=== PATIENT | male | born 1960 | race Caucasian/White ===

== ENCOUNTER 2019-12-16 00:25 | Day surgery (SDC) | payer OTHER, SELFPAY ==
[2019-12-12 15:21] VITALS: BMI 32.0
[2019-12-16 09:52] VITALS: BP 168/81; PULSE 56; RESP 18; TEMP 36.1; O2SAT 100
[2019-12-16] MEDS: LACTATED RINGERS 1,000 ML 150 ML IV CONT (10:00)
--- NOTE | 2019-12-16 10:11 | PM.HPGS ---
History of Present Illness History of Present Illness Consent: Risks, benefits, and alternatives have been discussed and questions answered. Patient agrees to proceed with procedure. Chief complaint: neoplasm screening, family hx colon ca Narrative: Baldemar Ritter is a 59 year old W male referred for screening colonoscopy secondary to family history of colon cancer brother diagnosed at age 51. Patient is asymptomatic. Last colonoscopy was 5 years ago no polyps were seen. PMFSH Past Medical History Medical History (Updated 12/16/19 @ 10:12 by Florian Smith MD) Dyslipidemia Surgical History Surgical History (Updated 12/16/19 @ 10:13 by Florian Smith MD) H/O umbilical hernia repair H/O varicose vein stripping History of Bailey fundoplication S/P left inguinal herniorrhaphy Family History Family History Mother Family history of multiple sclerosis Social History Social History Smoking status: Never smoker Second hand tobacco smoke exposure: No Alcohol intake: current Meds Home Medications and Allergies Home Medications Medication Instructions Recorded Confirmed Type pravastatin 80 mg tablet 40 mg PO DAILY #45 tablet 11/11/19 12/12/19 Rx [id number]-[id number]-FA-vit K 1 tablet PO DAILY 12/12/19 12/12/19 History [Adults Multivitamin] Allergies Allergy/AdvReac Type Severity Reaction Status Date / Time cephalexin Allergy Unknown Rash Verified 12/16/19 09:52 Cephalosporins Allergy Unknown Rash Verified 12/16/19 09:52 Vital Signs Vital Signs - 24 hr 12/16/19 09:52 Temperature 36.1 C L Pulse Rate 56 L Respiratory Rate 18 Blood Pressure 168/81 H Pulse Oximetry 100 Exam Const: Orientation/consciousness: patient oriented x3 Resp: Auscultation: clear to auscultation bilaterally Cardio: Rate: regular rate Rhythm: regular rhythm Heart sounds: no murmurs GI: GI Palp: Yes Soft to palpation, No Tenderness to palpation present (GI), Yes No hepatosplenomegaly present and No Palpable mass present Auscultation: normal bowel sounds Neuro: General: patient oriented x3 and no focal motor deficits Extrem: General: no pedal edema Assessment and Plan Additional Plan screening colonoscopy in high risk patient
--- NOTE | 2019-12-16 10:24 | WPDANESEPPF ---
Anes - Initial Pre Proc Eval Procedure: Operation Date: 12/16/19 11:00 Proposed Procedures p Screening Colonoscopy - Florian Smith MD Date/Time: 12/16/19 10:24 Surgeon: Florian Smith MD Pre Op Diagnosis: neoplasm screening, family hx colon ca Patient Data Age: 59 Gender: M Height: 6 ft 1 in Weight: 109.4 kg Last Vital Signs Temp 36.1 C L 12/16/19 09:52 Pulse 56 L 12/16/19 09:52 Resp 18 12/16/19 09:52 BP 168/81 H 12/16/19 09:52 Pulse Ox 100 12/16/19 09:52 Allergies Allergy/AdvReac Type Severity Reaction Status Date / Time cephalexin Allergy Unknown Rash Verified 12/16/19 09:52 Cephalosporins Allergy Unknown Rash Verified 12/16/19 09:52 Home Medications Medication Instructions Recorded Confirmed Type pravastatin 80 mg tablet 40 mg PO DAILY #45 tablet 11/11/19 12/12/19 Rx Adults Multivitamin 1 tablet PO DAILY 12/12/19 12/12/19 History Patient hx anesthesia problems: none Family hx anesthesia problems: none PMFSH Past Medical History Medical History Dyslipidemia Surgical History Surgical History H/O umbilical hernia repair H/O varicose vein stripping History of Bailey fundoplication S/P left inguinal herniorrhaphy Family History Family History Mother Family history of multiple sclerosis Social History Social History Smoking status: Never smoker Second hand tobacco smoke exposure: No Alcohol intake: current Anes - Eval Final PreProcedure Day of Procedure 12/16/19 10:24 Patient weight: obese Heart: regular rate and rhythm Lungs: clear to auscultation Airway: Mallampati scale class II Neurological: alert and oriented Last oral intake: >/= 8 hours ASA classification: II Emergent: no Anesthesia type and monitoring: general GIVS and standard monitoring Informed Consent: The patient's anesthetic plan and its attendant risks and benefits were discussed with the patient/family/POA. Questions were solicited and answers provided to the satisfaction of the patient/family/POA.
[2019-12-16] MEDS: SIMETHICONE ORAL SUSPENSION 20 MG/0.3 ML 30 ML BOTTLE 0.6 ML IRRIGATION (11:11)
[2019-12-16 11:30] VITALS: BP 109/52; PULSE 62; RESP 20; O2SAT 96
[2019-12-16 11:40] VITALS: BP 104/72; PULSE 61; RESP 15; O2SAT 99
[2019-12-16 11:50] VITALS: BP 121/74; PULSE 65; RESP 15; O2SAT 98
== END 2019-12-16 12:00 | disposition home or self-care (01) ==
PROVIDERS: PCP Internal Medicine; Visit Provider Internal Medicine Gastroenterology
PROC: 0DJD8ZZ Inspection of Lower Intestinal Tract, Via Natural or Artificial Opening Endoscopic (ICD-10-PCS; CPT 45378; principal; 2019-12-16 11:00)
DX: Z12.11 Encounter for screening for malignant neoplasm of colon (principal); D12.3 Benign neoplasm of transverse colon; K64.4 Residual hemorrhoidal skin tags; Z80.0 Family history of malignant neoplasm of digestive organs; E78.5 Hyperlipidemia, unspecified
CPT/HCPCS: 45385; 45380; 88305; J2001; J2704; J7120

== ENCOUNTER 2023-07-18 09:18 | Outpatient (CLI) | payer OTHER, SELFPAY ==
--- NOTE | 2023-07-18 11:30 | NEURO_ITS ---
Impression: # 63 year old non-diabetic complains of numbness of lower extremities. 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 # Needle/EMG exam abnormal with neurogenic changes. # Clinical correlation recommended. Nerve Conduction Studies Anti Sensory Summary Table Stim Site NR Peak (ms) P-T Amp (?V) Site1 Site2 Delta-P (ms) Dist (cm) Cong (m/s) Left Sup Fibular Anti Sensory (Ant Lat Mall) NO RESPONSE 14 cm NR 14 cm Ant Lat Mall 16.0 Right Sup Fibular Anti Sensory (Ant Lat Mall) NO RESPONSE 14 cm NR 14 cm Ant Lat Mall 16.0 Left Sural Anti Sensory (Lat Mall) NO RESPONSE Calf NR Calf Lat Mall 16.0 Right Sural Anti Sensory (Lat Mall) NO RESPONSE Calf NR Calf Lat Mall 16.0 Motor Summary Table Stim Site NR Onset (ms) O-P Amp (mV) Site1 Site2 Delta-0 (ms) Dist (cm) Cong (m/s) Left Peroneal Motor (Vastus Med) Ankle 4.1 1.8 Popit Ankle 13.3 44.0 33 Popit 17.4 1.0 Right Peroneal Motor (Vastus Med) Ankle 4.1 0.8 Popit Ankle 11.6 42.0 36 Popit 15.7 0.4 Left Tibial Motor (Abd Zhou Brev) Ankle 4.7 1.2 Knee Ankle 13.6 45.0 33 Knee 18.3 0.9 Right Tibial Motor (Abd Zhou Brev) Ankle 4.6 0.2 Knee Ankle 12.4 45.0 36 Knee 17.0 0.1 F Wave Studies NR F-Lat (ms) L-R F-Lat (ms) Left Peroneal (Mrkrs) (EDB) 72.28 0.50 Right Peroneal (Mrkrs) (EDB) 72.78 0.50 Left Tibial (Mrkrs) (Abd Hallucis) 71.90 0.26 Right Tibial (Mrkrs) (Abd Hallucis) 72.16 0.26 EMG Side Muscle Nerve Root Ins Act Fibs Amp Dur Recrt Comment Right AntTibialis Dp Br Fibular L4-5 Nml Nml Nml Nml Nml Right Gastroc Tibial S1-2 Nml Nml Nml Nml Nml Right Fibularis Long Sup Br Fibular L5-S1 Nml Nml Nml >12ms Reduced Right Flex Dig Long Tibial L5-S2 Nml Nml Nml >12ms Reduced Right Ext Dig Brev Dp Br Fibular L5, S1 Nml Nml Nml >12ms Reduced Left AntTibialis Dp Br Fibular L4-5 Nml Nml Nml Nml Nml Left Gastroc Tibial S1-2 Nml Nml Nml Nml Nml Left Fibularis Long Sup Br Fibular L5-S1 Nml Nml Nml >12ms Reduced Left Flex Dig Long Tibial L5-S2 Nml Nml Nml >12ms Reduced Left Ext Dig Brev Dp Br Fibular L5, S1 Nml Nml Nml >12ms Reduced MTDD
== END 2023-07-18 09:19 | disposition home or self-care (01) ==
LOC: ANHNEURO 09:19
PROVIDERS: PCP Internal Medicine; Visit Provider Internal Medicine
DX: M79.605 Pain in left leg (principal); G62.89 Other specified polyneuropathies
CPT/HCPCS: 95886; 95910

== ENCOUNTER 2023-10-05 02:20 | Day surgery (SDC) | payer OTHER, SELFPAY ==
[2023-09-19 08:52] VITALS: BMI 29.1
--- NOTE | 2023-10-03 10:26 | SUR.PREOP ---
Patient called regarding upcoming procedure. Reviewed preop instructions, appointment times, and procedure prep.
[2023-10-05 06:56] VITALS: BP 164/80; PULSE 55; RESP 18; TEMP 36.1; O2SAT 97
[2023-10-05] MEDS: LACTATED RINGERS 1,000 ML 150 ML IV CONT (07:08)
--- NOTE | 2023-10-05 07:50 | PM.HPGS ---
History of Present Illness History of Present Illness Consent: Risks, benefits, and alternatives have been discussed and questions answered. Patient agrees to proceed with procedure. Chief complaint: family hx colon ca, hx of colon polyps Narrative: Baldemar Ritter is a 63 year old male referred for colonoscopy. he has a family history of colon cancer and polyps, In his brother. His brother was diagnosed with colon cancer at age 50.. Review of Systems Review of Systems: All systems reviewed & are unremarkable except as noted in HPI and below PMFSH Past Medical History Medical History Dyslipidemia Surgical History Surgical History H/O umbilical hernia repair H/O varicose vein stripping History of Bailey fundoplication S/P left inguinal herniorrhaphy Family History Family History Mother Family history of multiple sclerosis Social History Social History Smoking status: Never smoker Second hand tobacco smoke exposure: No Alcohol intake: current Lack of Transportation: No Lack of Food: Never True Current Housing: I Have Housing Concerned About Future Housing: No Difficulty Paying Gas/Electric Bills: No Difficulty Paying for Meds: No Currently Unemployed: No Education: Master's Degree or Higher Difficulty w/ Childcare or Family Care: No Spiritual care concerns: No Meds Home Medications and Allergies Home Medications Medication Instructions Recorded Confirmed Type multivit with minerals-iron 18 1 tablet PO DAILY 12/12/19 09/19/23 History mg-folic ac 400 mcg-vit K 25 mcg tablet (Adults Multivitamin) cholecalciferol (vitamin D3) 25 25 mcg PO DAILY 11/16/21 09/19/23 History mcg (1,000 unit) capsule ascorbic acid (vitamin C) 500 mg 500 mg PO DAILY 05/23/22 09/19/23 History capsule pravastatin 80 mg tablet 40 mg PO DAILY #45 tabs 04/25/23 09/19/23 Rx zinc sulfate 50 mg zinc (220 mg) 50 mg PO DAILY 05/29/23 09/19/23 History capsule latanoprost 0.005 % eye drops 1 drp EACH EYE DAILY #2.5 mL 05/31/23 09/19/23 Rx mometasone 50 mcg/actuation nasal 2 spray intranasal DAILY #17 grams 10/04/23 10/05/23 Rx spray Allergies Allergy/AdvReac Type Severity Reaction Status Date / Time cephalexin Allergy Unknown Rash Verified 10/05/23 06:55 Cephalosporins Allergy Unknown Rash Verified 10/05/23 06:55 Vital Signs Vital Signs - 24 hr 10/05/23 06:56 Temperature 36.1 C L Pulse Rate 55 L Respiratory Rate 18 Blood Pressure 164/80 H Pulse Oximetry 97 Oxygen Delivery Room Air Exam Const: General: alert Orientation/consciousness: patient oriented x3 Resp: Auscultation: clear to auscultation bilaterally Cardio: Rhythm: regular rhythm GI: GI Palp: Yes Soft to palpation and No Tenderness to palpation present (GI) Neuro: General: patient oriented x3 Assessment and Plan Assessment and plan (1) Family hx of colon cancer: Code(s): Z80.0 - Family history of malignant neoplasm of digestive organs Status: Acute Assessment and Plan: Colonoscopy with possible biopsy or polypectomy or cautery or injection of substances.
--- NOTE | 2023-10-05 07:52 | WPDANESEPPF ---
Anes - Initial Pre Proc Eval Procedure: Operation Date: 10/05/23 08:00 Proposed Procedures p Colonoscopy - Hernandez Billingsley MD Date/Time: 10/05/23 07:52 Surgeon: Hernandez Billingsley MD Pre Op Diagnosis: family hx colon ca, hx of colon polyps Patient Data Age: 63 Gender: M Height: 1.88 m Weight: 100.2 kg Last Vital Signs Temp 96.9 F L 10/05/23 06:56 Pulse 55 L 10/05/23 06:56 Resp 18 10/05/23 06:56 BP 164/80 H 10/05/23 06:56 Pulse Ox 97 10/05/23 06:56 O2 Del Method Room Air 10/05/23 06:56 Allergies Allergy/AdvReac Type Severity Reaction Status Date / Time cephalexin Allergy Unknown Rash Verified 10/05/23 06:55 Cephalosporins Allergy Unknown Rash Verified 10/05/23 06:55 Home Medications Medication Instructions Recorded Confirmed Type multivit with minerals-iron 18 1 tablet PO DAILY 12/12/19 09/19/23 History mg-folic ac 400 mcg-vit K 25 mcg tablet (Adults Multivitamin) cholecalciferol (vitamin D3) 25 25 mcg PO DAILY 11/16/21 09/19/23 History mcg (1,000 unit) capsule ascorbic acid (vitamin C) 500 mg 500 mg PO DAILY 05/23/22 09/19/23 History capsule pravastatin 80 mg tablet 40 mg PO DAILY #45 tabs 04/25/23 09/19/23 Rx zinc sulfate 50 mg zinc (220 mg) 50 mg PO DAILY 05/29/23 09/19/23 History capsule latanoprost 0.005 % eye drops 1 drp EACH EYE DAILY #2.5 mL 05/31/23 09/19/23 Rx mometasone 50 mcg/actuation nasal 2 spray intranasal DAILY #17 grams 10/04/23 10/05/23 Rx spray Patient hx anesthesia problems: none Family hx anesthesia problems: none Results Review: All pre-operative results and documents have been reviewed as part of the pre-operative evaluation. PMFSH Past Medical History Medical History Dyslipidemia Surgical History Surgical History H/O umbilical hernia repair H/O varicose vein stripping History of Bailey fundoplication S/P left inguinal herniorrhaphy Family History Family History Mother Family history of multiple sclerosis Social History Social History Smoking status: Never smoker Second hand tobacco smoke exposure: No Alcohol intake: current Lack of Transportation: No Lack of Food: Never True Current Housing: I Have Housing Concerned About Future Housing: No Difficulty Paying Gas/Electric Bills: No Difficulty Paying for Meds: No Currently Unemployed: No Education: Master's Degree or Higher Difficulty w/ Childcare or Family Care: No Spiritual care concerns: No Anes - Eval Final PreProcedure Day of Procedure 10/05/23 07:52 Patient weight: normal Heart: regular rate and rhythm Lungs: clear to auscultation Airway: Mallampati scale class II Neurological: alert and oriented Last oral intake: >/= 8 hours ASA classification: II Emergent: no Anesthetic plan: proceed Anesthesia type and monitoring: general GIVS and standard monitoring Results Review: All pre-operative results and documents have been reviewed as part of the pre-operative evaluation. Informed Consent: The patient's anesthetic plan and its attendant risks and benefits were discussed with the patient/family/POA. Questions were solicited and answers provided to the satisfaction of the patient/family/POA.
[2023-10-05] MEDS: SIMETHICONE ORAL SUSPENSION 20 MG/0.3 ML 30 ML BOTTLE 0.6 ML IRRIGATION (08:21)
[2023-10-05 08:31] VITALS: BP 124/78; PULSE 55; RESP 15; O2SAT 97
[2023-10-05 08:41] VITALS: BP 134/74; PULSE 55; RESP 12; O2SAT 97
[2023-10-05 08:51] VITALS: BP 132/88; PULSE 53; RESP 11; O2SAT 99
== END 2023-10-05 08:57 | disposition home or self-care (01) ==
PROVIDERS: PCP Internal Medicine; Visit Provider Internal Medicine Gastroenterology
PROC: 0DJD8ZZ Inspection of Lower Intestinal Tract, Via Natural or Artificial Opening Endoscopic (ICD-10-PCS; CPT 45378; principal; 2023-10-05 08:00)
DX: Z12.11 Encounter for screening for malignant neoplasm of colon (principal); Z80.0 Family history of malignant neoplasm of digestive organs; Z86.010 Personal history of colon polyps; E78.5 Hyperlipidemia, unspecified
CPT/HCPCS: 45378; J2704; J7120